=== PATIENT | female | born 1975 | race American Indian/Alaskan Native ===

== ENCOUNTER 2017-09-16 05:59 | Outpatient (CLI) | payer BC ==
[2017-09-16] MEDS ORDERED: NACL ONE (06:46)
--- NOTE | 2017-09-16 08:39 | Cat Scan Report ---
FINAL REPORT EXAM: CT ABDOMEN PELVIS W CON HISTORY: CHECKING FOR LEAK VSG SURG / ABD PAIN TECHNIQUE: CT images are acquired through the Abdomen and Pelvis arterial and delayed phases following ingestion of positive enteric contrast and intravenous administration of contrast. Transaxial, coronal and sagittal reformations are provided. PRIORS: None FINDINGS: Partially visualized intrathoracic contents are unremarkable. The liver, gallbladder, pancreas, spleen, and adrenal glands are unremarkable. Kidneys show no worrisome lesions, hydronephrosis, or calculi. Urinary bladder is unremarkable. Patient status post sleeve gastrectomy. Positive enteric contrast is predominantly within the jejunum and ileum and is seen as far distally as the cecum. No contrast is seen within the stomach at the time of the examination. There is no perigastric fluid or stranding identified. No pneumoperitoneum. Small and large bowel are normal in caliber. Normal appendix. Aorta is normal in course and caliber. Superficial soft tissues are remarkable for mild anterior abdominal wall edema and a midline surgical incision. No acute or aggressive appearing skeletal findings. IMPRESSION: No pneumoperitoneum or extravasation of enteric contrast to suggest leak status post sleeve gastrectomy.
== END 2017-09-16 06:00 | disposition home or self-care (01) ==
LOC: CT 05:59
PROVIDERS: ATTEND Specialist
DX: R10.30 Lower abdominal pain, unspecified (principal); Z90.3 Acquired absence of stomach [part of]
CPT/HCPCS: 74177; Q9967

== ENCOUNTER 2021-02-27 08:52 | Outpatient (CLI) | payer BC ==
--- NOTE | 2021-03-02 08:27 | Mammography Report ---
DIGITAL SCREENING MAMMOGRAM WITH CAD, 02/27/2021 CLINICAL INFORMATION / INDICATION: Routine screening mammography. TECHNIQUE: Digital bilateral 2D mammography was obtained in the craniocaudal and mediolateral obliqu e projections. This examination was interpreted with the benefit of Computer-Aided Detection analysis . COMPARISON: 02/27/2020, 10/31/2017 FINDINGS: Breast Density: The breasts are heterogeneously dense, which may obscure small masses. No dominant mass, suspicious calcifications, or architectural distortion in either breast. IMPRESSION: No mammographic evidence of malignancy. Follow up recommendation: Routine yearly BI-RADS Category 1: Negative. A "normal" or negative report should not discourage follow up or biopsy of a clinically significant f inding. A written summary of these findings will be mailed to the patient. The patient will be entered into a mammography reporting system which will generate a reminder letter for the patient's next appointmen t at the appropriate interval. [employer] recommends yearly mammograms starting at age 40 and continuing as l kyle as a woman is in good health. Breast MRI is recommended for women with an approximate 20-25% or greater lifetime risk of breast cancer, including women with a strong family history of breast or ova thiago cancer or who have been treated for Hodgkin's disease. Signer Name: Keke Loyola MD Signed: 03/02/2021 8:22 AM Workstation Name: [email or web address]
== END 2021-02-27 08:53 | disposition home or self-care (01) ==
LOC: SPVWC 08:52
PROVIDERS: ATTEND Surgery
DX: Z12.31 Encounter for screening mammogram for malignant neoplasm of breast (principal)
CPT/HCPCS: 77063; 77067